=== PATIENT | female | born 1940 | race Caucasian/White ===

== ENCOUNTER 2024-03-18 21:16 | Emergency (ER) | payer MEDICARE ==
[~2024-03-18] VITALS: Ht 157.5 cm; Wt 63.0 kg
[2024-03-18 21:38] VITALS: BP_SYST 133; PULSE 69; RESP 20; TEMP 98.1; O2SAT 97
== END 2024-03-18 22:05 | disposition left against medical advice (07) ==
LOC: SED 21:16
DX: E11.65 Type 2 diabetes mellitus with hyperglycemia (principal); R11.0 Nausea
CPT/HCPCS: 82948; 99282